=== PATIENT | male | born 1950 | race African-American/Black ===

== ENCOUNTER 2016-07-19 15:47 | Observation (INO) | payer OTHER ==
[~2016-07-19] VITALS: Ht 185.4 cm; Wt 80.0 kg
[~2016-07-19 15:47] MED LIST: AMLO5 PO; ASPI325T PO; CLON.1T TD; CLOP75 PO; HYDRA50 PO; LORTA5 PO; LOSA50 PO; METO25 PO; PHEN100 PO; PRAV40 PO; TRAZ100 PO; WALKER ROLLING
[2016-07-19 15:55] VITALS: TEMP 98.3
[2016-07-19] MEDS ORDERED: SODIUM CHLORIDE 0.9% FLUSH 10 ML FLUSH IVF PRN (16:00)
--- NOTE | 2016-07-19 16:07 | PD ---
HPI Chief Complaint: Syncope/Near-Syncope Time Seen by Provider: 16:04 Travel History International Travel<30 days: No Contact w/Intl Traveler<30days: No Traveled to known affect area: No History of Present Illness HPI Patient comes in by EMS after having a witnessed syncopal episode by family at an [facility] where he is currently residing. Per EMS he was eating when family noticed him having an episode of loss of consciousness in his wheelchair for approximately 2 minutes. Patient denies any pain or medical complaints. Denies any chest pain pre-or post with loss of consciousness. Denies any headache, new numbness or tingling, shortness of breath, chest pain, nausea, vomiting, or fevers. Patient states that he has residual weakness on his left side from a previous stroke 2-3 months ago. Patient is uncertain of his medications or other medical history. PFSH Past Medical History Autoimmune Disease: No Blood Disorders: No Anxiety: Yes Depression: Yes Heart Rhythm Problems: No Cancer: No Cardiovascular Problems: Yes High Cholesterol: Yes Chest Pain: No Congestive Heart Failure: No Cerebrovascular Accident: Yes Diminished Hearing: No Endocrine: No Genitourinary: No Hepatitis: Yes (HEP C) Hypertension: Yes Immune Disorder: No Implanted Vascular Access Dvce: Yes Musculoskeletal: No Neurologic: No Psychiatric: Yes Respiratory: No Myocardial Infarction: No Past Surgical History Body Medical Devices: EAR PEIRCING, IVAD Other Surgery: No Social History Alcohol Use: No (1-2 BEERS/DAY) Tobacco Use: Yes (1 PPD) Substance Use: No (MARIJUANA) Allergies-Medications (Allergen,Severity, Reaction): Coded Allergies: No Known Allergies (Verified , 07/19/16) Reported Meds & Prescriptions Reported Meds & Active Scripts Active Reported Clonidine 168 HR Patch (Clonidine HCl) 0.1 Mg/24 Hr Patch 1 Patch T-DERMAL Q7D Trazodone (Trazodone HCl) 100 Mg Tab 100 Mg PO HS Sertraline (Sertraline HCl) 50 Mg Tab 50 Mg PO DAILY Senokot S (Sennosides-Docusate Sodium) 8.6-50 Mg Tab 2 Tab PO BID Phenytoin (Phenytoin Sodium) 1 Pow Pow 100 Mg PO BID Mirtazapine 15 Mg Tab 15 Mg PO HS Metoprolol Tartrate 50 Mg Tab 50 Mg PO BID Losartan (Losartan Potassium) 50 Mg Tab 50 Mg PO DAILY Levothyroxine (Levothyroxine Sodium) 50 Mcg Tab 50 Mcg PO DAILY Hyoscyamine Sulfate 0.125 Mg Sub 1 Tab PO TID Hydrocodone-Acetaminophen 5-325 mg Tab 1 Tab PO BID Hydralazine (Hydralazine HCl) 50 Mg Tab 50 Mg PO Q6HR Take with a meal Ferrous Sulfate 325 Mg Tab 325 Mg PO DAILY Clopidogrel (Clopidogrel Bisulfate) 75 Mg Tab 75 Mg PO DAILY Atorvastatin (Atorvastatin Calcium) 80 Mg Tab 80 Mg PO HS Aspirin 81 Mg Tabdr 81 Mg PO DAILY Amlodipine (Amlodipine Besylate) 10 Mg Tab 10 Mg PO DAILY Review of Systems Except as stated in HPI: all other systems reviewed are Neg Physical Exam Narrative GENERAL: Well-developed, well nourished, in no acute distress, and non-ill appearing. SKIN: Focused skin assessment warm and dry. HEAD: Atraumatic. Normocephalic. EYES: Pupils equal and round. EOMI. No scleral icterus. No injection or drainage. ENT: No nasal bleeding or discharge. Mucous membranes pink and moist. NECK: Trachea midline. Supple. No nuclear rigidity. CARDIOVASCULAR: Regular rate and rhythm. No murmur appreciated. RESPIRATORY: No accessory muscle use. No respiratory distress. Clear to auscultation. Breath sounds equal bilaterally. GASTROINTESTINAL: Abdomen soft, non-tender, nondistended. Hepatic and splenic margins not palpable. Normal bowel sounds 4. No pulsatile mass. MUSCULOSKELETAL: No obvious deformities. No clubbing. No cyanosis. No edema. Decreased range of motion on the left from previous CVA patient reports is unchanged.. NEUROLOGICAL: Awake and alert. No obvious cranial nerve deficits. Normal speech. PSYCHIATRIC: Appropriate mood and affect; insight and judgment normal. Data Data Last Documented VS Vital Signs Date Time Temp Pulse Resp B/P Pulse Ox O2 Delivery O2 Flow Rate FiO2 07/19/16 18:00 64 16 132/72 95 Room Air 07/19/16 15:55 98.3 Orders Electrocardiogram (07/19/16 15:59) Basic Metabolic Panel (Bmp) (07/19/16 15:59) Complete Blood Count With Diff (07/19/16 15:59) Magnesium (Mg) (07/19/16 15:59) Ckmb (Isoenzyme) Profile (07/19/16 15:59) Troponin I (07/19/16 15:59) Act Partial Throm Time (Ptt) (07/19/16 15:59) Prothrombin Time / Inr (Pt) (07/19/16 15:59) Urinalysis - C+S If Indicated (07/19/16 15:59) Chest, Single Ap (07/19/16 15:59) Ct Brain W/O Iv Contrast(Rout) (07/19/16 15:59) Ecg Monitoring (07/19/16 15:59) Iv Access Insert/Monitor (07/19/16 15:59) Oximetry (07/19/16 15:59) Sodium Chloride 0.9% Flush (Ns Flush) (07/19/16 16:00) CKMB (07/19/16 16:28) CKMB% (07/19/16 16:28) Admit Order (Ed Use Only) (07/19/16 18:07) Place In Observation (07/19/16 ) Vital Signs (Adult) Q4H (07/19/16 18:04) Regulatory Affairs Portfolio Leader / Telemetry .CONTINUOUS (07/19/16 18:04) Intake + Output TIFFANY.QSHIFT (07/19/16 18:04) Diet Heart Healthy (07/19/16 Dinner) Sodium Chloride 0.9% Flush (Ns Flush) (07/19/16 18:15) Sodium Chloride 0.9% Flush (Ns Flush) (07/19/16 21:00) Acetaminophen (Tylenol) (07/19/16 18:15) Ondansetron Inj (Zofran Inj) (07/19/16 18:15) Basic Metabolic Panel (Bmp) (07/20/16 06:00) Complete Blood Count With Diff (07/20/16 06:00) Resp Oxygen Zach C Titrat 1-4 L (07/19/16 ) Pt Request For Service (07/19/16 18:04) Heparin Inj (Heparin Inj) (07/19/16 20:00) Naloxone Inj (Narcan Inj) (07/19/16 18:15) Echo 2d Comp W/Dopp(Routine) (07/19/16 ) Consult Neurology (07/19/16 ) Us Carotid Arteries Comp Bilat (07/19/16 ) Labs Laboratory Tests Test 07/19/16 16:28 White Blood Count 6.0 TH/MM3 Red Blood Count 3.36 MIL/MM3 Hemoglobin 11.2 GM/DL Hematocrit 32.0 % Mean Corpuscular Volume 95.2 FL Mean Corpuscular Hemoglobin 33.2 PG Mean Corpuscular Hemoglobin 34.9 % Concent Red Cell Distribution Width 13.5 % Platelet Count 237 TH/MM3 Mean Platelet Volume 7.6 FL Neutrophils (%) (Auto) 61.9 % Lymphocytes (%) (Auto) 21.3 % Monocytes (%) (Auto) 12.9 % Eosinophils (%) (Auto) 2.9 % Basophils (%) (Auto) 1.0 % Neutrophils # (Auto) 3.7 TH/MM3 Lymphocytes # (Auto) 1.3 TH/MM3 Monocytes # (Auto) 0.8 TH/MM3 Eosinophils # (Auto) 0.2 TH/MM3 Basophils # (Auto) 0.1 TH/MM3 CBC Comment DIFF FINAL Differential Comment Prothrombin Time 11.5 SEC Prothromb Time International 1.0 RATIO Ratio Activated Partial 25.6 SEC Thromboplast Time Sodium Level 139 MEQ/L Potassium Level 4.3 MEQ/L Chloride Level 102 MEQ/L Carbon Dioxide Level 31.6 MEQ/L Anion Gap 5 MEQ/L Blood Urea Nitrogen 14 MG/DL Creatinine 0.91 MG/DL Estimat Glomerular Filtration 101 ML/MIN Rate Random Glucose 101 MG/DL Calcium Level 8.7 MG/DL Magnesium Level 1.7 MG/DL Total Creatine Kinase 107 U/L Creatine Kinase MB 0.9 NG/ML Troponin I LESS THAN 0.02 NG/ML MDM Medical Decision Making Medical Screen Exam Complete: Yes Emergency Medical Condition: Yes Interpretation(s) EK reviewed by Dr. Alves, shows sinus rhythm with a ventricular rate of 65. No STEMI. Differential Diagnosis Syncope, acute coronary syndrome, electrolyte abnormality, dehydration, polypharmacy, other Narrative Course Patient was seen and exam. Laboratory and radiological studies were obtained and reviewed. Discussed patient with Dr. Alves, who recommends having the patient placed in observation for further evaluation of witnessed syncope. Discussed all findings and plan of care with patient, who is agreeable for admission. All questions were answered. Physician Communication Physician Communication [address] Borja, who is agreeable to admit the patient. Diagnosis Primary Impression: Syncope Qualified Code: R55 - Syncope, unspecified syncope type Admitting Information Admitting Physician Requests: Observation Condition: Stable Antione Velarde PA Jul 19, 2016 16:07
[2016-07-19 16:30] VITALS: RESP 16; O2SAT 98
[2016-07-19 16:49] LABS: AUTOMATED NEUTROPHIL # 3.7 TH/MM3 (1.8-7.7); BASOPHIL # 0.1 TH/MM3 (0-0.2); EOSINOPHIL # 0.2 TH/MM3 (0-0.4); EOSINOPHIL % 2.9 % (0.0-4.0); HEMO FLAGS DIFF FINAL; LYMPH % 21.3 % (9.0-44.0); LYMPHOCYTE # 1.3 TH/MM3 (1.0-4.8); MEAN CELL VOLUME 95.2 FL (80.0-100.0); MEAN CORPUSCULAR HEMOGLOBIN 33.2 PG (27.0-34.0); MEAN CORPUSCULAR HGB CONC 34.9 % (32.0-36.0); MONO % 12.9 % (0.0-8.0); NEUT % 61.9 % (16.0-70.0); PLATELET COUNT 237 TH/MM3 (150-450); RED BLOOD COUNT 3.36 MIL/MM3 (4.50-5.90); RED CELL DISTRIBUTION WIDTH 13.5 % (11.6-17.2)
[2016-07-19 16:59] LABS: PROTHROMBIN TIME - PATIENT 11.5 SEC (9.8-11.6)
[2016-07-19 17:01] LABS: APTT (PATIENT) 25.6 SEC (24.3-30.1)
[2016-07-19] MEDS ORDERED: CLOP75TA PO (17:12)
[2016-07-19] MEDS ORDERED: HYDR-3516 PO (17:12)
[2016-07-19] MEDS ORDERED: LOSA50TA PO (17:12)
[2016-07-19] MEDS ORDERED: ATOR1TAB18 PO (17:12)
[2016-07-19] MEDS ORDERED: LEVO50TA4 PO (17:12)
[2016-07-19] MEDS ORDERED: AMLO10TA2 PO (17:12)
[2016-07-19] MEDS ORDERED: TRAZ100T4 PO (17:12)
[2016-07-19] MEDS ORDERED: ASPI1TAB69 PO (17:12)
[2016-07-19] MEDS ORDERED: HYDR50TA15 PO (17:12)
[2016-07-19] MEDS ORDERED: PHEN1POW PO (17:12)
[2016-07-19] MEDS ORDERED: HYOS0.127 PO (17:12)
[2016-07-19] MEDS ORDERED: MIRTA15 PO (17:12)
[2016-07-19] MEDS ORDERED: SENN1TAB17 PO (17:12)
[2016-07-19] MEDS ORDERED: CLON0.1D T-DERMAL (17:12)
[2016-07-19] MEDS ORDERED: FERR325T PO (17:12)
[2016-07-19] MEDS ORDERED: METO50TA PO (17:12)
[2016-07-19] MEDS ORDERED: SERT-132 PO (17:12)
--- NOTE | 2016-07-19 17:12 | RADRPT ---
EXAM DATE/TIME: 07/19/2016 16:07 [facility] COMPARISON: CHEST SINGLE AP, October 14, 2015, 15:04. INDICATIONS : Syncope. Short of breath. Smoker. MEDICAL HISTORY : Hypertension. Hepatitis C. Hypercholesterolemia. SURGICAL HISTORY : None. ENCOUNTER: Initial ACUITY: 1 day PAIN SCORE: 0/10 LOCATION: Bilateral chest FINDINGS: A single view of the chest demonstrates the lungs to be symmetrically aerated without evidence of mas s, infiltrate or effusion. The cardiomediastinal contours are unremarkable. Osseous structures are intact. CONCLUSION: No acute disease. No significant change has occurred. Mark Sampson MD on July 19, 2016 at 17:10 Board Certified Radiologist. This report was verified electronically.
--- NOTE | 2016-07-19 17:24 | RADRPT ---
EXAM DATE/TIME: 07/19/2016 16:39 [facility] COMPARISON: MRI BRAIN W/O CONTRAST, October 17, 2015, 10:19. CT BRAIN W/O CONTRAST, October 14, 2015, 14:30. INDICATIONS : Syncopal episode today. RADIATION DOSE: 42.50 CTDIvol (mGy) MEDICAL HISTORY : Stroke. Hepatitis C. Hypertension. SURGICAL HISTORY : None. ENCOUNTER: Initial ACUITY: 1 day PAIN SCALE: 0/10 LOCATION: Bilateral head TECHNIQUE: Multiple contiguous axial images were obtained of the head. Using automated exposure control and adj ustment of the mA and/or kV according to patient size, radiation dose was kept as low as reasonably a chievable to obtain optimal diagnostic quality images. FINDINGS: CEREBRUM: The ventricles are normal for age. There is bilateral cortical atrophy. There is evidence of an old i nfarct involving the right frontal lobe and right mid parietal area which was noted on patient's prio r studies. There is an old infarct involving the right thalamus. No evidence of midline shift, mass l esion, hemorrhage or acute infarction. No extra-axial fluid collections are seen. Bilateral chronic white matter changes are demonstrated. POSTERIOR FOSSA: The cerebellum and brainstem are intact. The 4th ventricle is midline. The cerebellopontine angle i s unremarkable. EXTRACRANIAL: The visualized portion of the orbits is intact. SKULL: The calvaria is intact. No evidence of skull fracture. CONCLUSION: 1. No acute intracranial hemorrhage. 2. Evidence of old infarction involving the right frontal lobe, right mid parietal area and right krystal lamus. 3. Bilateral cortical atrophy and chronic white matter changes bilaterally. Mark Sampson MD on July 19, 2016 at 17:21 Board Certified Radiologist. This report was verified electronically.
[2016-07-19 17:29] LABS: ANION GAP 5 MEQ/L (5-15); BICARBONATE 31.6 MEQ/L (21.0-32.0); BLOOD UREA NITROGEN 14 MG/DL (7-18); CHLORIDE 102 MEQ/L (98-107); CREATINE KINASE 107 U/L (39-308); GLOMERULAR FILTRATION RATE 101 ML/MIN (>89); MAGNESIUM 1.7 MG/DL (1.5-2.5); SODIUM (NA) 139 MEQ/L (136-145)
[2016-07-19 17:30] LABS: POTASSIUM 4.3 MEQ/L (3.5-5.1)
[2016-07-19 17:42] LABS: CKMB 0.9 NG/ML (0.5-3.6)
[2016-07-19 18:00] VITALS: BP 132/72; PULSE 64; RESP 16; O2SAT 95
[2016-07-19] MEDS ORDERED: ACETAMINOPHEN 325 MG TAB PO PRN (18:15)
[2016-07-19] MEDS ORDERED: ONDANSETRON HCL 4 MG/2 ML VIAL IVP PRN (18:15)
[2016-07-19] MEDS ORDERED: NALOXONE HCL 0.4 MG/ML AMP IV PRN (18:15)
[2016-07-19] MEDS: SODIUM CHLORIDE 0.9% FLUSH 10 ML FLUSH IV FLUSH SCH (19:38)
[2016-07-19] MEDS: HEPARIN SODIUM - SQ 10,000 UNITS/ML VIAL SQ SCH (19:38)
[2016-07-19 20:23] VITALS: BP 128/68; PULSE 63; RESP 16; TEMP 98.7; O2SAT 98
[2016-07-19 20:39] VITALS: PULSE 57
--- NOTE | 2016-07-19 23:39 | RADRPT ---
EXAM DATE/TIME: 07/19/2016 22:13 [facility] COMPARISON: US CAROTID ARTERIES, October 09, 2015, 13:36. INDICATIONS : Syncope. MEDICAL HISTORY : Hypercholesterolemia. Hypertension. Hepatitis C. Cerebrovascular accident. Depression. Anxiety. SURGICAL HISTORY : None. ENCOUNTER: Subsequent ACUITY: 1 day PAIN SCORE: 0/10 LOCATION: Bilateral neck PEAK SYSTOLIC VELOCITIES (cm/sec): ICA/CCA RATIO: N.A. Left: 1.3 ICA: Right:Occluded Left: 100 CCA: Right: 50 Left: 79 ECA: Right: 81 Left: 71 VERTEBRAL: Right: 48 antegrade Left: 32 antegrade Elevated flow velocities and ICA/CCA ratios have been found to correlate with increased degrees of vessel stenosis, calculated as percentage of diameter relative to a normal segment of distal ICA/CCA FINDINGS: RIGHT CAROTID: There is plaque right carotid bulb with occlusion of the right internal carotid artery. LEFT CAROTID: There is moderate plaque at the left carotid bulb region. This appears potentially significant on the grayscale images but the velocities are within normal limits. VERTEBRAL ARTERIES: Antegrade flow is seen in both vertebral arteries. MISCELLANEOUS: None. CONCLUSION: 1. Occlusion of the right internal carotid artery. 2. Prominent at least moderate plaque at the left carotid bulb region. A significant stenosis is not confirmed. This area could be further evaluated with a CTA of the neck. Low Barnett MD on July 19, 2016 at 23:33 Board Certified Radiologist. This report was verified electronically.
[2016-07-19 23:56] VITALS: BP 130/66; PULSE 71; RESP 18; TEMP 98.7; O2SAT 97
[2016-07-20] VITALS (9 sets, daily range): BP systolic 99–143; BP diastolic 63–77; PULSE 59–87; RESP 16–20; TEMP 97.8–98.9; O2SAT 95–97
[2016-07-20 07:14] LABS: POTASSIUM 3.5 MEQ/L (3.5-5.1)
[2016-07-20 07:22] LABS: AUTOMATED NEUTROPHIL # 2.3 TH/MM3 (1.8-7.7); BASOPHIL # 0.1 TH/MM3 (0-0.2); BASOPHIL % 1.3 % (0.0-2.0); EOSINOPHIL # 0.2 TH/MM3 (0-0.4); EOSINOPHIL % 3.9 % (0.0-4.0); HEMATOCRIT 30.3 % (39.0-51.0); HEMO FLAGS DIFF FINAL; LYMPH % 35.3 % (9.0-44.0); LYMPHOCYTE # 1.7 TH/MM3 (1.0-4.8); MEAN CELL VOLUME 95.4 FL (80.0-100.0); MEAN CORPUSCULAR HEMOGLOBIN 31.8 PG (27.0-34.0); MEAN CORPUSCULAR HGB CONC 33.3 % (32.0-36.0); MONO % 12.6 % (0.0-8.0); NEUT % 46.9 % (16.0-70.0); PLATELET COUNT 213 TH/MM3 (150-450); RED BLOOD COUNT 3.18 MIL/MM3 (4.50-5.90); RED CELL DISTRIBUTION WIDTH 13.3 % (11.6-17.2); WHITE BLOOD COUNT 4.9 TH/MM3 (4.0-11.0)
[2016-07-20] MEDS: HEPARIN SODIUM - SQ 10,000 UNITS/ML VIAL SQ SCH ×2 (08:21→19:31)
[2016-07-20] MEDS ORDERED: IOHEXOL 350 MG/ML 10 ML VIAL (for RAD DIAG) IV ONE (08:37)
[2016-07-20] MEDS: SODIUM CHLORIDE 0.9% FLUSH 10 ML FLUSH IV FLUSH SCH ×2 (08:46→19:32)
--- NOTE | 2016-07-20 08:52 | RADRPT ---
EXAM DATE/TIME: 07/20/2016 07:53 [facility] COMPARISON: CTA CAROTID ARTERIES W 3D RECON, October 09, 2015, 17:47. INDICATIONS : Abnormal ultrasound, evaluate for right carotid occlusion. IV CONTRAST: 85 cc Omnipaque 350 (iohexol) IV RADIATION DOSE: 16.57 CTDIvol (mGy) MEDICAL HISTORY : Stroke. Hypertension. Hepatitis C. SURGICAL HISTORY : None. ENCOUNTER: Subsequent ACUITY: 1 day PAIN SCALE: 0/10 LOCATION: Bilateral head Elevated flow velocities and ICA/CCA ratios have been found to correlate with increased degrees of vessel stenosis, calculated as percentage of diameter relative to a normal segment of distal ICA/CCA. TECHNIQUE: Volumetric scanning was performed using a multirow detector CT scanner. The data was post processed with a variety of visualization algorithms including full-volume maximum intensity projection, multip lanar sliding thin-slab reformation, curved-planar reformation, and surface-rendering techniques. Us ing automated exposure control and adjustment of the mA and/or kV according to patient size, radiatio n dose was kept as low as reasonably achievable to obtain optimal diagnostic quality images. FINDINGS: AORTIC ARCH: There is a three-vessel origin of the great vessels from the aorta. No evidence of ostial narrowing. RIGHT CAROTID: The common carotid artery is intact. The right internal carotid artery remains occluded beginning jus t distal to its origin. The external carotid artery is intact. LEFT CAROTID: The common carotid artery is intact. The carotid bulb has a normal configuration without ulceration or narrowing. The internal carotid artery lumen is smooth without stenosis. The external carotid ar ashely is intact. VERTEBRALS: The vertebral arteries have a symmetric diameter. No stenotic lesions are seen. CONCLUSION: Persistent occlusion of the right internal carotid artery. No significant stenosis seen with regards to the left internal carotid artery.. Ofelia Downs MD on July 20, 2016 at 8:43 Board Certified Radiologist. This report was verified electronically.
--- NOTE | 2016-07-20 10:43 | HHI.HP ---
[facility] Admission Diagnosis syncope Diagnoses: Travel History International Travel<30 Days: No Contact w/Intl Traveler <30 Da: No Traveled to Known Affected Are: No Past Family Social History Allergies: Coded Allergies: No Known Allergies (Verified , 07/19/16) Physical Exam Vital Signs Vital Signs Date Time Temp Pulse Resp B/P Pulse Ox O2 Delivery O2 Flow Rate FiO2 07/20/16 08:50 71 07/20/16 07:31 98.0 79 20 143/77 96 07/20/16 03:37 98.8 65 18 116/69 97 07/20/16 02:00 95 21 07/19/16 23:56 98.7 71 18 130/66 97 07/19/16 20:39 57 07/19/16 20:23 98.7 63 16 128/68 98 07/19/16 18:00 64 16 132/72 95 Room Air 07/19/16 16:30 16 98 Room Air 07/19/16 15:55 98.3 Laboratory Laboratory Tests Test 07/19/16 07/20/16 16:28 06:07 White Blood Count 6.0 4.9 Red Blood Count 3.36 3.18 Hemoglobin 11.2 10.1 Hematocrit 32.0 30.3 Mean Corpuscular Volume 95.2 95.4 Mean Corpuscular Hemoglobin 33.2 31.8 Mean Corpuscular Hemoglobin 34.9 33.3 Concent Red Cell Distribution Width 13.5 13.3 Platelet Count 237 213 Mean Platelet Volume 7.6 7.7 Neutrophils (%) (Auto) 61.9 46.9 Lymphocytes (%) (Auto) 21.3 35.3 Monocytes (%) (Auto) 12.9 12.6 Eosinophils (%) (Auto) 2.9 3.9 Basophils (%) (Auto) 1.0 1.3 Neutrophils # (Auto) 3.7 2.3 Lymphocytes # (Auto) 1.3 1.7 Monocytes # (Auto) 0.8 0.6 Eosinophils # (Auto) 0.2 0.2 Basophils # (Auto) 0.1 0.1 CBC Comment DIFF FINAL DIFF FINAL Differential Comment Prothrombin Time 11.5 Prothromb Time International 1.0 Ratio Activated Partial 25.6 Thromboplast Time Sodium Level 139 142 Potassium Level 4.3 3.5 Chloride Level 102 104 Carbon Dioxide Level 31.6 29.0 Anion Gap 5 9 Blood Urea Nitrogen 14 11 Creatinine 0.91 0.74 Estimat Glomerular Filtration 101 129 Rate Random Glucose 101 84 Calcium Level 8.7 9.0 Magnesium Level 1.7 Total Creatine Kinase 107 Creatine Kinase MB 0.9 Troponin I LESS THAN 0.02 Result Diagram: 07/20/16 0607 07/20/16 0607 Assessment and Plan Assessment and Plan dictated.[id number] Note : patient refused ECHO. Luba Negron Jul 20, 2016 10:43
[2016-07-20] MEDS: DOCUSATE SODIUM 50 MG/SENNA 8.6 MG TAB PO SCH ×3 (11:00→19:32)
[2016-07-20] MEDS ORDERED: cloNIDine HCL 0.1 MG/24 HR PATCH T-DERMAL SCH (12:00)
[2016-07-20] MEDS: PHENYTOIN SODIUM 100 MG CAP PO SCH ×2 (12:18→19:32)
[2016-07-20] MEDS: CLOPIDOGREL 75 MG TAB PO SCH (12:18)
[2016-07-20] MEDS: LOSARTAN 50 MG TAB PO SCH (12:19)
[2016-07-20] MEDS: LEVOTHYROXINE SODIUM 50 MCG TAB PO SCH (12:19)
[2016-07-20] MEDS: FERROUS SULFATE 325 MG (65 MG ELEMENTAL IRON) TAB PO SCH (12:19)
[2016-07-20] MEDS: METOPROLOL TARTRATE 50 MG TAB PO SCH ×2 (12:19→19:32)
[2016-07-20] MEDS: SERTRALINE HCL 50 MG TAB PO SCH (12:19)
[2016-07-20] MEDS: hydrALAZINE HCL 50 MG TAB PO SCH ×3 (12:19→23:52)
[2016-07-20] MEDS: ASPIRIN EC 81 MG TABEC PO SCH (12:19)
--- NOTE | 2016-07-20 13:18 | HHI.HP ---
[facility] Service [place] Primary Care Physician [facility] Admission Diagnosis syncope Diagnoses: Travel History International Travel<30 Days: No Contact w/Intl Traveler <30 Da: No Traveled to Known Affected Are: No Past Family Social History Allergies: Coded Allergies: No Known Allergies (Verified , 07/19/16) Physical Exam Vital Signs Vital Signs Date Time Temp Pulse Resp B/P Pulse Ox O2 Delivery O2 Flow Rate FiO2 07/20/16 11:29 98.9 87 20 120/65 96 07/20/16 08:50 71 07/20/16 07:31 98.0 79 20 143/77 96 07/20/16 03:37 98.8 65 18 116/69 97 07/20/16 02:00 95 21 07/19/16 23:56 98.7 71 18 130/66 97 07/19/16 20:39 57 07/19/16 20:23 98.7 63 16 128/68 98 07/19/16 18:00 64 16 132/72 95 Room Air 07/19/16 16:30 16 98 Room Air 07/19/16 15:55 98.3 Physical Exam GENERAL: This is a well-nourished, well-developed patient, in no apparent distress. SKIN: No rashes, ecchymoses or lesions. Cool and dry. HEAD: Atraumatic. Normocephalic. No temporal or scalp tenderness. EYES: Pupils equal round and reactive. Extraocular motions intact. No scleral icterus. No injection or drainage. ENT: Nose without bleeding, purulent drainage or septal hematoma. Throat without erythema, tonsillar hypertrophy or exudate. Uvula midline. Airway patent. NECK: Trachea midline. No JVD or lymphadenopathy. Supple, nontender, no meningeal signs. CARDIOVASCULAR: Regular rate and rhythm without murmurs, gallops, or rubs. RESPIRATORY: Clear to auscultation. Breath sounds equal bilaterally. No wheezes , rales, or rhonchi. GASTROINTESTINAL: Abdomen soft, non-tender, nondistended. No hepato-splenomegaly , or palpable masses. No guarding. MUSCULOSKELETAL: Extremities without clubbing, cyanosis, or edema. No joint tenderness, effusion, or edema noted. No calf tenderness. Negative Homans sign bilaterally. NEUROLOGICAL: Awake and alert. Cranial nerves II through XII intact. Motor and sensory grossly within normal limits. Five out of 5 muscle strength in all muscle groups. Normal speech. Laboratory Laboratory Tests Test 07/19/16 07/20/16 16:28 06:07 White Blood Count 6.0 4.9 Red Blood Count 3.36 3.18 Hemoglobin 11.2 10.1 Hematocrit 32.0 30.3 Mean Corpuscular Volume 95.2 95.4 Mean Corpuscular Hemoglobin 33.2 31.8 Mean Corpuscular Hemoglobin 34.9 33.3 Concent Red Cell Distribution Width 13.5 13.3 Platelet Count 237 213 Mean Platelet Volume 7.6 7.7 Neutrophils (%) (Auto) 61.9 46.9 Lymphocytes (%) (Auto) 21.3 35.3 Monocytes (%) (Auto) 12.9 12.6 Eosinophils (%) (Auto) 2.9 3.9 Basophils (%) (Auto) 1.0 1.3 Neutrophils # (Auto) 3.7 2.3 Lymphocytes # (Auto) 1.3 1.7 Monocytes # (Auto) 0.8 0.6 Eosinophils # (Auto) 0.2 0.2 Basophils # (Auto) 0.1 0.1 CBC Comment DIFF FINAL DIFF FINAL Differential Comment Prothrombin Time 11.5 Prothromb Time International 1.0 Ratio Activated Partial 25.6 Thromboplast Time Sodium Level 139 142 Potassium Level 4.3 3.5 Chloride Level 102 104 Carbon Dioxide Level 31.6 29.0 Anion Gap 5 9 Blood Urea Nitrogen 14 11 Creatinine 0.91 0.74 Estimat Glomerular Filtration 101 129 Rate Random Glucose 101 84 Calcium Level 8.7 9.0 Magnesium Level 1.7 Total Creatine Kinase 107 Creatine Kinase MB 0.9 Troponin I LESS THAN 0.02 Result Diagram: 07/20/16 0607 07/20/16 0607 Assessment and Plan Assessment and Plan patient seen and examined Please refer to admission [facility] & P for details syncope no episodes since admission awake alert asymptomatic right now Carotid ultrasound and CTA with right ICA stenosis consult vascular surgery Neurology input awaited EEG pending discussed with patient no family at bed side discussed with Adelaida Burris MD Jul 20, 2016 13:18
--- NOTE | 2016-07-20 14:17 | MB ---
cc: AUTUMN YOUNG M.D. DATE OF CONSULTATION 07/20/16 DATE OF 1950 REASON FOR CONSULTATION Syncope. HISTORY OF PRESENT ILLNESS This is a 65-year-old man with a history of right MCA infarct with right ICA occlusion from 2016. He lives in an [facility] where they claim there was a syncope witnessed by family. The patient cannot give me any history, currently sleeping, arousable, follows commands. PAST MEDICAL HISTORY He has a past medical history of stroke with right MCA with a right carotid occlusion. He has a history of depression, hyperlipidemia, hepatitis C, hypertension, some type of implantable vascular access device. ALLERGIES None reported. MEDICATIONS 1. Clonidine. 2. Trazodone. 3. Sertraline. 4. Senokot. 5. Dilantin 100 milligrams twice a day. 6. Mirtazapine. 7. Metoprolol. 8. Losartan. Synthroid. 9. Glucosamine. 10. Lortab. 11. Hydralazine. 12. Iron. 13. Plavix. 14. Atorvastatin. 15. Baby aspirin. 16. Amlodipine. PHYSICAL EXAMINATION VITAL SIGNS: On exam his vitals his temperature 98.9, pulse 87, respiratory rate 20, blood pressure 120/65. NEURO: He is awake and alert and verbal, yes or no. Follows commands. Pupils are reactive. Face looks symmetrical. He has a left hemiplegia with increased tone, right side is intact. Gait cannot be assessed. His labs are reviewed. He has not had a Dilantin level, however. IMAGING STUDIES Imaging shows an old right frontal parietal thalamic stroke, carotid CTA right ICA occlusion. IMPRESSION Syncope versus seizure. The patient with a prior right MCA stroke. Will ahead and get the echo as ordered. Get an EEG and Dilantin level. Watch him for any seizures. Physical therapy evaluation and further recommendations as needed. MD THONY Bernal/TAINA /12:03 PM /2:07 PM
[2016-07-20] MEDS: HYOSCYAMINE 0.125 MG TAB PO SCH ×2 (14:45→17:14)
--- NOTE | 2016-07-20 15:09 | MB ---
cc: REINALDO RAMIREZ MD DATE OF CONSULTATION 07/19/2016 HISTORY OF PRESENT ILLNESS This is a gentleman who is [id number] who was witnessed to have a syncopal episode while at an assisted living facility. He was brought in the emergency room to be evaluated. PAST MEDICAL HISTORY His past medical history is well documented in his chart. A major significance is that he has had a right hemispheric CVA in the past. He is positive for hepatitis C. SOCIAL HISTORY He denies any significant social history. He does smoke one pack per day and drinks approximately one to two beers per day. ALLERGIES He is allergic to no known medications. REVIEW OF SYSTEMS His review of systems as I said is documented well in his emergency room visit and as well as his history and physical. PHYSICAL EXAMINATION GENERAL: Evaluation today reveals an alert white black male who has had difficulty feeding himself and has food over his mouth and chin. VITAL SIGNS: His blood pressure is 132/72, pulse is 64, respirations are 12. SKIN, HEAD, EYES, EARS, NOSE, AND THROAT: Negative. NECK: Neck is supple. He does not have any carotid bruits. HEART: Heart has a normal sinus rhythm. ABDOMEN: Abdomen is soft and nontender. EXTREMITIES: Groin pulses are 2+ bilaterally. No palpable pulses below the groin in either lower extremity. He has a dense right hemispheric stroke, in evaluating his left upper extremity and left lower extremity with contracture of his left knee and no evidence of any movement in his left upper extremity. NEUROLOGICAL: Otherwise unremarkable with the exception of the above. IMPRESSION This patient has had a previous right hemispheric stroke which is dense and he has not recovered from. Evaluation of his CTA shows an occluded right carotid artery and evaluation of his ultrasound shows an occluded right internal carotid artery. There is basically nothing that vascular surgery has to offer this gentleman. Thank you very much for consultation. Reinaldo Ramirez MD MPH/EO /2:03 PM /2:52 PM
[2016-07-20] MEDS: SODIUM CHLORIDE 0.9% FLUSH 10 ML FLUSH IV FLUSH PRN (19:32)
[2016-07-20] MEDS ORDERED: ATORVASTATIN 80 MG TAB PO SCH (21:00)
[2016-07-20] MEDS ORDERED: traZODone HCL 100 MG TAB PO SCH (21:00)
[2016-07-20] MEDS ORDERED: MIRTAZAPINE 15 MG TAB PO SCH (21:00)
[2016-07-21 04:15] VITALS: BP 128/72; PULSE 59; RESP 16; TEMP 97.9; O2SAT 96
[2016-07-21] MEDS: LEVOTHYROXINE SODIUM 50 MCG TAB PO SCH (04:20)
[2016-07-21] MEDS: SODIUM CHLORIDE 0.9% FLUSH 10 ML FLUSH IV FLUSH PRN (04:20)
[2016-07-21 05:17] LABS: BICARBONATE 30.4 MEQ/L (21.0-32.0); POTASSIUM 3.5 MEQ/L (3.5-5.1)
[2016-07-21] MEDS: hydrALAZINE HCL 50 MG TAB PO SCH ×3 (05:29→18:00)
--- NOTE | 2016-07-21 07:45 | MG ---
cc: AUTUMN YOUNG M.D. Lab No: [id number] Date: 07/21/2016 Age: 65 Sex: M Photic stimulation. Awake and drowsy EEG study on 10/15/[address] shows an old infarct in the right hemisphere with left hemiplegia. History of syncope while eating, loss of consciousness for two minutes. History of stroke with residual left-sided weakness. Alcohol and tobacco use in the past. Hepatitis C. Medicines are clonidine, Apresoline, Zoloft, Norvasc, aspirin, Plavix, iron, Synthroid, Cozaar, Lopressor, Dilantin, heparin. DESCRIPTION OF RECORD A lot of muscle artifact but overall he does have a background alpha of 8 Hz. EKG has some artifact, difficult to tell a true sinus rhythm by this one lead. There looks like some possible PVCs. Photic stimulation elicits a mild driving response. No epileptiform features. IMPRESSION Overall normal-appearing EEG. No epileptiform features. Clinical correlation. MD THONY Bernal/GRISELDA /7:32 AM /7:39 AM
--- NOTE | 2016-07-21 08:29 | HHI.PR ---
Subjective Remarks resting in bed,moves around alot. awake responds to verbal stimuli No further syncopal episodes No shortness of breath Left-sided paralysis Afebrile (Luba Negron) Objective Objective Results - Vital Signs Date Time Temp Pulse Resp B/P Pulse Ox O2 Delivery O2 Flow Rate FiO2 07/21/16 04:15 97.9 59 16 128/72 96 07/20/16 22:36 98.0 59 16 99/63 96 07/20/16 19:04 82 07/20/16 19:00 97.8 78 18 103/65 96 07/20/16 15:44 98.6 72 20 108/63 97 07/20/16 11:29 98.9 87 20 120/65 96 07/20/16 08:50 71 I/O 07/20/16 07/20/16 07/20/16 07/21/16 07/21/16 07/21/16 07:00 15:00 23:00 07:00 15:00 23:00 Intake Total 400 ml Balance 400 ml Intake Oral 400 ml # Voids 1 1 (Luba Negron) Result Diagram: 07/20/16 0607 07/21/16 0450 ROS General: Fatigue, Weakness (left-sided), Other (10 point ROS done. Positives noted in ROS review other systems negative) Pulmonary: Cough (none) Neuro/MS: Lightheaded (syncope on admission, none since) (Luba Negron ) Physical Exam Physical Exam PHYSICAL EXAMINATION GENERAL: This is a well-developed, well-nourished male who appears to be in no acute distress. He is alert and awake, CVA in 2016 HEAD: Normocephalic Facial features appear symmetric. OROPHARYNGEAL: Oropharynx without erythema or edema. NECK: Supple. No nuchal rigidity or lymphadenopathy. Trachea midline without deviation. CARDIAC: Regular rhythm, regular rate, S1 and S2 are heard. Murmur grade 3/6 left sternal border; no gallops or rubs. LUNGS: Clear to auscultation bilaterally. ABDOMEN: Soft, nontender, no organomegaly or masses. Bowel sounds are heard in all four quadrants. No rebound. No guarding. EXTREMITIES: no edema. Pulses equal bilateral. Left sided weakness/paralysis NEUROLOGICAL: Patient responds to verbal stimuli and communicates with short brief sentences SKIN:Warm and moist Objective Remarks No more dizzy spells (Luba Negron) A/P Assessment and Plan Syncopal episode, witnessed CTA carotids show right occlusion, left side open, stroke 2016 with total left-sided paralysis. Neuro consult done Appreciate input. Patient is still positive from residual effects of previous CVA. EEG pending, patient refused echocardiogram yesterday. We'll attempt to redo today Appreciate vascular surgery consult, no surgical intervention to offer for now. We'll monitor for any seizures versus syncopal episodes Hypertension Normal trends with medication management, Lowest BP noted 99/63 while sleeping, this a.m. 128/72. Will monitor symptoms Hyperlipidemia Medical management Chronic kidney disease, medical management, monitor labs Agitation, refused echocardiogram yesterday, was not feeling as well. We will attempt to redo today Bradycardia Low 59 when sleeping, otherwise in the 60s and 70s. Medical management. Patient is asymptomatic Anemia Lab results currently show hemoglobin at 10.1. This is probably due to chronic disease. We'll monitor his labs Vital signs reviewed, afebrile, BP notes above, heart rate stable, notes above Labs reviewed, stable chemistries, no leukocytosis or infectious event seen. We 'll monitor Discussed With: Nurse, Family (patient), Other (Dr. Borja) (Luba Negron) Assessment and Plan Patient seen and examined work up neg, no syncope inpatient awaiting ECHo PT eval: needs SNF if Echoneg, can d/c to SNF discussed with patient and family at bed side discussed with case management discussed with Luba HOWARD (Adelaida Borja MD) Luba Negron Jul 21, 2016 08:29 Adelaida Borja MD Jul 21, 2016 09:41
[2016-07-21 08:30] VITALS: BP 143/73; PULSE 55; RESP 20; TEMP 98; O2SAT 94
--- NOTE | 2016-07-21 08:33 | MH ---
cc: LEIGH ANN OSUNA DATE OF ADMISSION: 07/19/2016 REASON FOR ADMISSION: Syncopal episode No travel in the last 30 days. HISTORY OF PRESENT ILLNESS: This is a pleasant 65-year-old black male who was in his usual state of health up until 24 hours ago. The patient is currently and [facility], an [facility] where he was sitting down eating with some of his family. The patient was sitting in a wheelchair and had an acute episode of syncope with loss of consciousness for approximately two minutes according to the record. The patient does not remember anything about the event. He had no signs or symptoms of chest pain, nausea, vomiting, fever, headache, numbness or tingling in his extremities before the incident occurred. The patient denies any previous syncopal episodes. According to the history and patient, he had a stroke approximately two to three months ago and he has been receiving rehabilitation. He is flaccid on his left side but does move his right arm and right leg with purpose. The patient is a fairly good historian, can give most of his previous medical information and current symptoms. PAST MEDICAL HISTORY: Includes: 1. Anxiety, depression. 2. Tobacco use. 3. Alcohol use. 4. Marijuana use. 5. Hyperlipidemia. 6. Cardiovascular disease. 7. Recent CVA. 8. Hepatitis C. 9. Hypertension. PAST SURGICAL HISTORY: According to the records, ear piercing and IV AD. ALLERGIES: NONE KNOWN. REPORTED MEDICATIONS: 1. Clonidine. 2. Trazodone 3. Sertraline 4. Senokot 5. Dilantin. 6. Metoprolol 7. Mirtazapine 8. Losartan. 9. Levothyroxine 10. Hyoscyamine. 11. Hydrocodone. 12. Hydralazine 13. Ferrous sulfate 14. Plavix 15. Atorvastatin 16. Aspirin 17. Amlodipine SOCIAL HISTORY: The patient currently is but lives in the [facility], for rehabilitation. History notes one to two beers a day for alcohol, a pack a day long-term tobacco use, marijuana substance abuse. These were all active approximately three months ago but not now. REVIEW OF SYSTEMS: A 12 point review of systems was done, positives noted in the HPI, which predominantly included a syncopal episode, old left-sided weakness, right CVA. Other systems negative or unremarkable. PHYSICAL EXAMINATION: Vital signs: Temperature is 98, pulse 79, respirations 20, blood pressure 143/77, O2 sat 96, currently on room air. Please note patient's heart rate has been as low as 57, noted on the record, while sleeping in the 60s. General: He is a well-developed, well-nourished black male, looks to be his stated age, resting in the bed. He is alert, awake, awakens easily, a fairly good historian. Skin: [place] mucous membranes, warm and dry. HEENT: Atraumatic, normocephalic. PERRLA. Mucous membranes are pink and moist, no scleral icterus. Neck: Supple. Cardiovascular: S1-S2. Regular rate and rhythm. No murmurs, rubs, or gallops. Respiratory: Essentially clear anteriorly and posteriorly with no wheezes, rales or rhonchi. GI: Abdomen is soft, nontender, nondistended. Active bowel sounds in all four quads. Musculoskeletal: No edema and no obvious deformities, left upper and lower extremity paralysis cannot move on command. Right side normal. Neurologic: Alert, awake, speech is clear. Psychiatric: appropriate mood, judgment appears normal. DIAGNOSTIC DATA White count 4.9. RBC 3.18, hemoglobin 10.1, hematocrit 30.3. Platelet count 213, monocyte percentage 12.6, PT/INR 1. Chemistry: sodium 142, potassium 3.5, chloride 104, carbon dioxide 29, anion gap 9, BUN 11, creatinine 0.74. GFR is 129, glucose 84, calcium is 9. IMAGING STUDIES: Chest x-ray, no acute disease. Head CT: Shows no acute hemorrhage, evidence of old infarct, on the right front lobe, right mid parietal lobe, right thalamus, bilateral cortical atrophy and chronic white matter changes bilaterally. Carotid ultrasound shows occlusion of the right internal carotid artery, prominent, at least moderate plaque on the left carotid bulb region. Significant stenosis is not confirmed but this area could be evaluated further with a CTA of the neck. ASSESSMENT/PLAN 1. Syncope. 2. Hypertension. 3. History of chronic kidney disease, stage III. 4. History of CVA. 5. Ischemic stroke. 6. History of tobacco use. 7. History of alcohol use. 8. Anemia. The plan is to admit, initially for observation. Patient's vital signs will be monitored q4 and more often as warranted. Heart healthy diet. Reconcile medications. Oxygen p.r.n. DVT prophylaxis with heparin and 2-D echocardiogram. Will consult neurology for their expert opinion. Will go ahead and get CTA of the neck for further evaluation, ECG monitoring, IV access, labs as warranted. I suspect his anemia is related to chronic disease. We will continue to monitor for any dysrhythmias and any signs and symptoms related to TIA or CVA. The patient is full code, full aggressive care. We will continue to follow expert opinion of neurology and treat this patient. Dictated by: LEE Anna MD JON Lennon/JOYCE /8:15 AM /8:32 AM
[2016-07-21] MEDS: SODIUM CHLORIDE 0.9% FLUSH 10 ML FLUSH IV FLUSH SCH (08:37)
[2016-07-21] MEDS: SERTRALINE HCL 50 MG TAB PO SCH (08:37)
[2016-07-21] MEDS: FERROUS SULFATE 325 MG (65 MG ELEMENTAL IRON) TAB PO SCH (08:37)
[2016-07-21] MEDS: HYOSCYAMINE 0.125 MG TAB PO SCH ×3 (08:37→18:00)
[2016-07-21] MEDS: HEPARIN SODIUM - SQ 10,000 UNITS/ML VIAL SQ SCH (08:37)
[2016-07-21] MEDS: DOCUSATE SODIUM 50 MG/SENNA 8.6 MG TAB PO SCH (08:37)
[2016-07-21] MEDS: CLOPIDOGREL 75 MG TAB PO SCH (08:38)
[2016-07-21] MEDS: METOPROLOL TARTRATE 50 MG TAB PO SCH (08:38)
[2016-07-21] MEDS: ASPIRIN EC 81 MG TABEC PO SCH (08:38)
[2016-07-21] MEDS: LOSARTAN 50 MG TAB PO SCH (08:38)
[2016-07-21] MEDS: PHENYTOIN SODIUM 100 MG CAP PO SCH (08:38)
[2016-07-21 10:17] VITALS: PULSE 68
[2016-07-21 11:27] VITALS: BP 92/51; PULSE 52; RESP 18; TEMP 98.5; O2SAT 95
--- NOTE | 2016-07-21 14:19 | EKG ---
Date Performed: 07/19/2016 Time Performed: 17:09:37 PTAGE: 65 years EKG: Sinus rhythm MINIMAL VOLTAGE CRITERIA FOR LVH, CONSIDER NORMAL VARIANT INFERIOR MYOCARDIAL INFARCTION Since the p rior tracing, the PVCs and the changes of left ventricular hypertrophy are no longer evident. ABNORMA L ECG PREVIOUS TRACING : 10/14/2015 17.53 DOCTOR: Vivien Bryant Interpretating Date/Time 07/21/2016 14:18:33
--- NOTE | 2016-07-21 15:30 | EC ---
Study Study Date:07/21/2016 STUDY CONCLUSIONS SUMMARY - Left ventricle: The cavity size was normal. Wall thickness was normal. Systolic function was normal. The estimated ejection fraction was in the range of 55% to 60%. Wall motion was normal; there were no regional wall motion abnormalities. - Aortic valve: Valve area: 2.31cm^2 (Vmax). - Pulmonary arteries: PA peak pressure: 32mm Hg (S). If LV function is below 40, please consider prescribing an ACEI or ARB or document rationale for non-use. PROCEDURE DATA STUDY STATUS: Elective. Procedure: Transthoracic echocardiography. Image quality was good. Scanning was performed from the parasternal, apical, and subcostal acoustic windows. Study completion: The patient tolerated the procedure well. Transthoracic echocardiography. M-mode, complete 2D, complete spectral Doppler, and color Doppler. Height: Height: 73in. Weight: Weight: 175.6lb. Body mass index: BMI: 23.2kg/m^2. Body surface area: BSA: 2.04m^2. Patient status: Inpatient. CARDIAC ANATOMY LEFT VENTRICLE: The cavity size was normal. Wall thickness was normal. Systolic function was normal. The estimated ejection fraction was in the range of 55% to 60%. Wall motion was normal; there were no regional wall motion abnormalities. AORTIC VALVE: Trileaflet; normal thickness leaflets. Doppler: Transvalvular velocity was within the normal range. There was no stenosis. No regurgitation. Valve area: 2.31cm^2 (Vmax). Indexed valve area: 1.13cm^2/m^2 (Vmax). Peak gradient: 11mm Hg (S). AORTA: Aortic root: The aortic root was normal in size. MITRAL VALVE: Structurally normal valve. Doppler: Transvalvular velocity was within the normal range. There was no evidence for stenosis. Trace to mild regurgitation. LEFT ATRIUM: The atrium was normal in size. RIGHT VENTRICLE: The cavity size was normal. Wall thickness was normal. PULMONIC VALVE: Doppler: Transvalvular velocity was within the normal range. There was no evidence for stenosis. No regurgitation. TRICUSPID VALVE: Structurally normal valve. Doppler: Transvalvular velocity was within the normal range. No regurgitation. PULMONARY ARTERY: The main pulmonary artery was normal-sized. Systolic pressure was within the normal range. RIGHT ATRIUM: The atrium was normal in size. PERICARDIUM: There was no pericardial effusion. SYSTEMIC VEINS: Inferior vena cava: The vessel was normal in size. Patient weight: 175.6lb _Ejection fraction:_ 65-75% _Fractional shortening:_ 32% up to 5Kg 5-11.5Kg 11.6-22.9Kg 23-45Kg 45-57Kg Aortic Root 7-13 <17 13-22 17-27 17-27 LA diam 6-13 <23 24-38 33-47 37-40 RVID 10-17 7-15 7-15 7-18 8-17 LVIDd 12-22 <32 24-38 33-47 37-40 LVPW 2-4 3-6 5-7 6-8 7-8 IVS 2-4 3-6 5-7 6-8 7-8 BASIC MEASUREMENTS ADULT NORMAL Left ventricle LV internal dimension, ED, chordal 49.3 mm 43-52 level, PLAX LV internal dimension, ES, chordal *39.5 mm 23-38 level, PLAX Fractional shortening, chordal level, *20 % >29 PLAX LV posterior wall thickness, ED 9.1 mm IVS/LVPW ratio, ED 1.06 <1.3 Ventricular septum Septal thickness, ED 9.63 mm Aortic valve Leaflet separation 16 mm 15-26 BASIC MEASUREMENTS ADULT NORMAL Aortic valve Leaflet separation 16 mm 15-26 Aorta Root diameter, ED 31 mm 20-37 Left atrium Anterior-posterior dimension, ES 34 mm 19-40 Anterior-posterior dimension index, ES 1.67 cm/m^2 <2.2 LA/aortic root ratio 1.1 DOPPLER MEASUREMENTS ADULT NORMAL Main pulmonary artery Pressure, S *32 mm Hg =30 Aortic valve Peak velocity, S 168 cm/s Peak gradient, S 11 mm Hg Valve area, Vmax 2.31 cm^2 Valve area index, Vmax 1.13 cm^2/m^2 Mitral valve Peak E-wave velocity 57.8 cm/s Peak A-wave velocity 85.9 cm/s Deceleration time *275 ms 150-230 Peak E/A ratio 0.7 Maximal regurgitant velocity 348 cm/s Tricuspid valve Regurgitant peak velocity 255 cm/s Peak RV-RA gradient, S 26 mm Hg Maximal regurgitant velocity 255 cm/s Systemic veins Estimated CVP 10 mm Hg Right ventricle RV pressure, S *36 mm Hg <30 Pulmonic valve Peak velocity, S 99.1 cm/s LEGEND: Mean values are shown as u=mean value. Asterisk (*) cárdenas values outside specified normal range. Prepared and signed by Hussein Alvarez [id number]
[2016-07-21 15:44] VITALS: BP 110/65; PULSE 60; RESP 20; TEMP 98.5; O2SAT 96
--- NOTE | 2016-07-22 17:38 | HHI.DS ---
Discharge Summary Admission Date Jul 19, 2016 at 18:08 Discharge Date: Jul 21, 2016 Admitting Diagnosis syncope Procedures MRI, carotid CTA Brief History This was a pleasant 65-year-old black male who was in his usual state of health up until 24 hours ago. The patient was currently at [facility], [facility] where he was sitting down eating with some of his family. The patient was sitting in a wheelchair and had an acute episode of syncope with loss of consciousness for approximately two minutes according to the record. The patient does not remember anything about the event. He had no signs or symptoms of chest pain, nausea, vomiting, fever, headache, numbness or tingling in his extremities before the incident occurred. The patient denies any previous syncopal episodes. According to the history and patient, he had a stroke approximately two to three months ago and he has been receiving rehabilitation. He was flaccid on his left side but does move his right arm and right leg with purpose. CBC/BMP: 07/20/16 0607 07/21/16 0450 Significant Findings Laboratory Tests Test 07/20/16 06:07 Red Blood Count 3.18 MIL/MM3 (4.50-5.90) Hemoglobin 10.1 GM/DL (13.0-17.0) Hematocrit 30.3 % (39.0-51.0) Monocytes (%) (Auto) 12.6 % (0.0-8.0) Imaging Last Impressions Neck CTA 07/20/16 0000 Signed Impressions: Service Date/Time: Wednesday, July 20, 2016 07:53 - CONCLUSION: Persistent occlusion of the right internal carotid artery. No significant stenosis seen with regards to the left internal carotid artery.. Ofelia Downs MD Head CT 07/19/16 1559 Signed Impressions: Service Date/Time: Tuesday, July 19, 2016 16:39 - CONCLUSION: 1. No acute intracranial hemorrhage. 2. Evidence of old infarction involving the right frontal lobe, right mid parietal area and right thalamus. 3. Bilateral cortical atrophy and chronic white matter changes bilaterally. Mark Sampson MD Chest X-Ray 07/19/16 1559 Signed Impressions: Service Date/Time: Tuesday, July 19, 2016 16:07 - CONCLUSION: No acute disease. No significant change has occurred. Mark Sampson MD Carotid Artery Ultrasound 07/19/16 0000 Signed Impressions: Service Date/Time: Tuesday, July 19, 2016 22:13 - CONCLUSION: 1. Occlusion of the right internal carotid artery. 2. Prominent at least moderate plaque at the left carotid bulb region. A significant stenosis is not confirmed. This area could be further evaluated with a CTA of the neck. Low Barnett MD PE at Discharge GENERAL: This was a well-developed, well-nourished male who appears to be in no acute distress. He was alert and awake, CVA in 2016 HEAD: Normocephalic Facial features appear symmetric. OROPHARYNGEAL: Oropharynx without erythema or edema. NECK: Supple. No nuchal rigidity or lymphadenopathy. Trachea midline without deviation. CARDIAC: Regular rhythm, regular rate, S1 and S2 are heard. Murmur grade 3/6 left sternal border; no gallops or rubs. LUNGS: Clear to auscultation bilaterally. ABDOMEN: Soft, nontender, no organomegaly or masses. Bowel sounds are heard in all four quadrants. No rebound. No guarding. EXTREMITIES: no edema. Pulses equal bilateral. Left sided weakness/paralysis NEUROLOGICAL: Patient responds to verbal stimuli and communicates with short brief sentences SKIN:Warm and moist Hospital Course These are the diagnoses that were used to treat this patient during his hospital course Syncopal episode, witnessed CTA carotids show right occlusion, left side open, stroke 2016 with total left-sided paralysis. Neuro consult done Appreciate input. Patient is still positive from residual effects of previous CVA. EEG pending, patient refused echocardiogram yesterday. We'll attempt to redo today Appreciate vascular surgery consult, no surgical intervention to offer for now. We'll monitor for any seizures versus syncopal episodes Hypertension Normal trends with medication management, Lowest BP noted 99/63 while sleeping, this a.m. 128/72. Will monitor symptoms Hyperlipidemia no acute problems encountered Medical management Chronic kidney disease, no acute problems encountered medical management, monitor labs Agitation, refused echocardiogram yesterday, was not feeling as well. We will attempt to redo today Bradycardia Low 59 when sleeping, otherwise in the 60s and 70s. Medical management. Patient is asymptomatic Anemia Lab results currently show hemoglobin at 10.1. This is probably due to chronic disease. We'll monitor his labs Patient had multiple testing for his syncopal episode. All test were unremarkable or head no acute new events to treat. Patient experienced no dizziness no syncope while in the hospital. Patient's ECG was monitored throughout stay with no dysrhythmias noted. Vital signs reviewed, afebrile, BP notes above, heart rate stable, notes above Labs reviewed, stable chemistries, no leukocytosis or infectious event seen. We 'll monitor On day of discharge, examined patient and charted. Patient seen and examined work up neg, no syncope inpatient awaiting ECHo, but patient had refused earlier PT eval: needs SNF if Echoneg, can d/c to SNF discussed with patient and family at bed side discussed with case management discussed with Luba HOWARD Pt Condition on Discharge: Stable Discharge Disposition: Discharge to SNF Discharge Instructions DIET: Follow Instructions for: Heart Healthy Diet Activities you can perform: Regular-No Restrictions Continued Medications: Amlodipine (Amlodipine) 10 Mg Tab 10 MG PO DAILY Blood Pressure Management #30 Ref 0 TAB Aspirin (Aspirin) 81 Mg Tabdr 81 MG PO DAILY TAB Atorvastatin (Atorvastatin) 80 Mg Tab 80 MG PO HS Cholesterol Management #30 Ref 0 TAB Clonidine 168 HR Patch (Clonidine 168 HR Patch) 0.1 Mg/24 Hr Patch 1 PATCH T-DERMAL Q7D Blood Pressure Management #4 Ref 0 PATCH Clopidogrel (Clopidogrel) 75 Mg Tab 75 MG PO DAILY Blood Clot Prevention #30 Ref 0 TAB Ferrous Sulfate (Ferrous Sulfate) 325 Mg Tab 325 MG PO DAILY Nutritional Supplement #30 Ref 0 TAB Hydralazine (Hydralazine) 50 Mg Tab 50 MG PO Q6HR Take with a meal Blood Pressure Management Ref 0 TAB Hyoscyamine Sulfate (Hyoscyamine Sulfate) 0.125 Mg Sub 1 TAB PO TID Levothyroxine (Levothyroxine) 50 Mcg Tab 50 MCG PO DAILY Thyroid #30 Ref 0 TAB Losartan (Losartan) 50 Mg Tab 50 MG PO DAILY Blood Pressure Management #30 Ref 0 TAB Metoprolol Tartrate (Metoprolol Tartrate) 50 Mg Tab 50 MG PO BID #60 Ref 0 TAB Mirtazapine (Mirtazapine) 15 Mg Tab 15 MG PO HS Depression Control #30 Ref 0 TAB Phenytoin (Phenytoin) 1 Pow Pow 100 MG PO BID Sennosides-Docusate Sodium (Senokot S) 8.6-50 Mg Tab 2 TAB PO BID Constipation Ref 0 TAB Sertraline (Sertraline) 50 Mg Tab 50 MG PO DAILY #30 Ref 0 TAB Trazodone (Trazodone) 100 Mg Tab 100 MG PO HS Control Depression #30 Ref 0 TAB Discontinued Medications: Hydrocodone-Acetaminophen (Hydrocodone-Acetaminophen) 5-325 mg Tab 1 TAB PO BID PAIN Ref 0 TAB Additional Information Follow-up with PCP in one week or 2 Luba Negron Jul 22, 2016 17:38
== END 2016-07-21 20:21 | disposition short-term general hospital (02) ==
LOC: NEPE 15:47 → NEDA 18:08 → NEPGCP 19:26
PROVIDERS: ADMIT Internal Medicine; ATTEND Internal Medicine
DX: R55 Syncope and collapse (principal); N18.3 Chronic kidney disease, stage 3 (moderate); I12.9 Hypertensive chronic kidney disease with stage 1 through stage 4 chronic kidney disease, or unspecified chronic kidney disease; Z86.73 Personal history of transient ischemic attack (TIA), and cerebral infarction without residual deficits; I63.9 Cerebral infarction, unspecified; D63.8 Anemia in other chronic diseases classified elsewhere; E78.00 Pure hypercholesterolemia, unspecified; B19.20 Unspecified viral hepatitis C without hepatic coma; F17.210 Nicotine dependence, cigarettes, uncomplicated; Z79.899 Other long term (current) drug therapy; F12.90 Cannabis use, unspecified, uncomplicated; E78.5 Hyperlipidemia, unspecified; I25.10 Atherosclerotic heart disease of native coronary artery without angina pectoris; I63.231 Cerebral infarction due to unspecified occlusion or stenosis of right carotid arteries
CPT/HCPCS: 70450; 70498; 71010; 80048; 80185; 82550; 82552; 83735; 84484; 85025; 85610; 85730; 93005; 93306; 93880; 95819; 97110; 97162; 97530; 99285; G0378; G8987; G8988; J1644; Q9967

== ENCOUNTER 2017-05-31 13:23 | Emergency (ER) | payer OTHER ==
[~2017-05-31] VITALS: Ht 182.9 cm; Wt 85.0 kg
[~2017-05-31 13:23] MED LIST changes: +AMLO10TA2 PO; -AMLO5 PO; +ASPI1TAB69 PO; -ASPI325T PO; +ATOR80TA45 PO; -CLON.1T TD; +CLON0.1D T-DERMAL; -CLOP75 PO; +CLOP75TA PO; +FERR325T PO; +HYDR50TA15 PO; -HYDRA50 PO; +HYOS0.1261 PO; +LEVO50TA4 PO; -LORTA5 PO; -LOSA50 PO; +LOSA50TA PO; -METO25 PO; +METO50TA PO; +MIRTA15 PO; -PHEN100 PO; +PHEN1POW PO; -PRAV40 PO; +SENN1TAB17 PO; +SERT-132 PO; -TRAZ100 PO; +TRAZ100T4 PO; -WALKER ROLLING
[2017-05-31 13:24] VITALS: BP 139/75; PULSE 68; RESP 19; TEMP 98.5; O2SAT 97
[2017-05-31] MEDS ORDERED: SODIUM CHLOR 0.9% 1000 ML INJ 1,000 ML IV SCH (13:26)
--- NOTE | 2017-05-31 13:31 | PD ---
HPI Chief Complaint: Altered Mental Status Time Seen by Provider: 13:27 Travel History International Travel<30 days: No Contact w/Intl Traveler<30days: No History of Present Illness HPI 66-year-old male with a history of CVA with L sided hemiparesis presents emergency department via [facility] emergently after being found with altered mental status. [facility] states that patient was sitting in the front passenger seat and became altered and unconscious. Patient apparently was riding with his daughter to visit family and patient became unresponsive. EVAC states that upon arrival, patient was altered and had a heart rate in the 30s. EVAC gave the patient 0.5 mg atropine and 100 cc normal saline IV bolus and he became more alert. EVAC states that he is normally in O 4 and is able to hold conversations and is fairly independent. He lives in an assisted living facility. Patient is alert and oriented to person, place, month. He has no complaints today. Denies chest pain, shortness of breath. PFSH Past Medical History Autoimmune Disease: No Blood Disorders: No Anxiety: Yes Depression: Yes Heart Rhythm Problems: No Cancer: No Cardiovascular Problems: Yes High Cholesterol: Yes Chest Pain: No Congestive Heart Failure: No Cerebrovascular Accident: Yes Diminished Hearing: No Endocrine: No Genitourinary: No Hepatitis: Yes (HEP C) Hypertension: Yes Immune Disorder: No Implanted Vascular Access Dvce: Yes Musculoskeletal: No Neurologic: No Psychiatric: Yes Respiratory: No Myocardial Infarction: No Past Surgical History Body Medical Devices: EAR PEIRCING, IVAD Other Surgery: No Social History Alcohol Use: No (1-2 BEERS/DAY) Tobacco Use: Yes (1 PPD) Substance Use: No (MARIJUANA) Allergies-Medications (Allergen,Severity, Reaction): Coded Allergies: No Known Allergies (Verified Adverse Reaction, Unknown, 05/31/17) Reported Meds & Prescriptions Reported Meds & Active Scripts Active Reported Lactulose Liq (Lactulose) 10 Gm/15 Ml Soln 30 Ml PO Q6H PRN Dilantin (Phenytoin Extended) 100 Mg Cap 200 Mg PO HS Dilantin (Phenytoin Extended) 100 Mg Cap 100 Mg PO DAILY [place] (Hydrocodone-Acetaminophen) 5 Mg-325 Mg Tab 1 Tab PO BID PRN Aspirin 81 Mg Chew 81 Mg CHEW DAILY Hydralazine HCl 25 Mg Tablet 50 Mg PO TID Ferrous Sulfate 325 Mg (65 Mg Iron) Tablet 325 Mg PO DAILY Clonidine 168 HR Patch (Clonidine HCl) 0.1 Mg/24 Hr Patch 1 Patch T-DERMAL Q7D Senokot S (Sennosides-Docusate Sodium) 8.6-50 Mg Tab 2 Tab PO BID Phenytoin (Phenytoin Sodium) 1 Pow Pow 100 Mg PO BID Mirtazapine 15 Mg Tab 15 Mg PO HS Metoprolol Tartrate 50 Mg Tab 50 Mg PO BID Losartan (Losartan Potassium) 50 Mg Tab 50 Mg PO DAILY Levothyroxine (Levothyroxine Sodium) 50 Mcg Tab 50 Mcg PO DAILY Hyoscyamine Sulfate 0.125 Mg Sub 1 Tab PO TID Clopidogrel (Clopidogrel Bisulfate) 75 Mg Tab 75 Mg PO DAILY Atorvastatin (Atorvastatin Calcium) 80 Mg Tab 80 Mg PO HS Amlodipine (Amlodipine Besylate) 10 Mg Tab 10 Mg PO DAILY Physical Exam Narrative GENERAL: Well-developed well-nourished in no apparent distress lying comfortably in bed. Patient is alert to self, place, month SKIN: Focused skin assessment warm/dry. HEAD: Atraumatic. Normocephalic. EYES: Pupils equal and round. No scleral icterus. No injection or drainage. ENT: No nasal bleeding or discharge. Mucous membranes pink and moist. NECK: Trachea midline. No JVD. CARDIOVASCULAR: Regular rate and rhythm. No murmur appreciated. RESPIRATORY: No accessory muscle use. Clear to auscultation. Breath sounds equal bilaterally. GASTROINTESTINAL: Abdomen soft, non-tender, nondistended. Hepatic and splenic margins not palpable. MUSCULOSKELETAL: No obvious deformities. No clubbing. No cyanosis. No edema. NEUROLOGICAL: Awake and alert. No obvious cranial nerve deficits. Motor grossly within normal limits. Normal speech. PSYCHIATRIC: Appropriate mood and affect; insight and judgment normal. Data Data Last Documented VS Vital Signs Date Time Temp Pulse Resp B/P (MAP) Pulse Ox O2 Delivery O2 Flow Rate FiO2 05/31/17 19:04 05/31/17 16:01 70 18 99 Room Air 05/31/17 13:24 98.5 Orders Orders Electrocardiogram (05/31/17 13:26) Complete Blood Count With Diff (05/31/17 13:26) Comprehensive Metabolic Panel (05/31/17 13:26) Creatine Kinase (Cpk) (05/31/17 13:26) Prothrombin Time / Inr (Pt) (05/31/17 13:26) Act Partial Throm Time (Ptt) (05/31/17 13:26) Troponin I (05/31/17 13:26) Thyroid Stimulating Hormone (05/31/17 13:26) Lactic Acid Sepsis Protocol (05/31/17 13:26) Chest, Single Ap (05/31/17 13:26) Ct Brain W/O Iv Contrast(Rout) (05/31/17 13:26) Blood Glucose (05/31/17 13:26) Ecg Monitoring (05/31/17 13:26) Iv Access Insert/Monitor (05/31/17 13:26) Oximetry (05/31/17 13:26) Sodium Chloride 0.9% Flush (Ns Flush) (05/31/17 13:30) Sodium Chlor 0.9% 1000 Ml Inj (Ns 1000 M (05/31/17 13:26) Shoulder, Limited(2vws) (05/31/17 ) Support Splint (05/31/17 14:54) Phenytoin (Dilantin) (05/31/17 13:40) Phenytoin Inj (Dilantin Inj) (05/31/17 16:15) Ed Discharge Order (05/31/17 16:26) Labs Laboratory Tests Test 05/31/17 13:40 05/31/17 13:42 White Blood Count 5.6 TH/MM3 Red Blood Count 3.24 MIL/MM3 Hemoglobin 10.6 GM/DL Hematocrit 31.3 % Mean Corpuscular Volume 96.6 FL Mean Corpuscular Hemoglobin 32.8 PG Mean Corpuscular Hemoglobin Concent 34.0 % Red Cell Distribution Width 13.7 % Platelet Count 224 TH/MM3 Mean Platelet Volume 7.5 FL Neutrophils (%) (Auto) 44.8 % Lymphocytes (%) (Auto) 37.5 % Monocytes (%) (Auto) 14.9 % Eosinophils (%) (Auto) 1.8 % Basophils (%) (Auto) 1.0 % Neutrophils # (Auto) 2.5 TH/MM3 Lymphocytes # (Auto) 2.1 TH/MM3 Monocytes # (Auto) 0.8 TH/MM3 Eosinophils # (Auto) 0.1 TH/MM3 Basophils # (Auto) 0.1 TH/MM3 CBC Comment DIFF FINAL Differential Comment Prothrombin Time 11.4 SEC Prothromb Time International Ratio 1.1 RATIO Activated Partial Thromboplast Time 26.3 SEC Blood Urea Nitrogen 12 MG/DL Creatinine 0.73 MG/DL Random Glucose 80 MG/DL Total Protein 6.5 GM/DL Albumin 3.3 GM/DL Calcium Level 7.9 MG/DL Alkaline Phosphatase 84 U/L Aspartate Amino Transf (AST/SGOT) 16 U/L Alanine Aminotransferase (ALT/SGPT) 29 U/L Total Bilirubin 0.2 MG/DL Sodium Level 142 MEQ/L Potassium Level 4.1 MEQ/L Chloride Level 106 MEQ/L Carbon Dioxide Level 31.9 MEQ/L Anion Gap 4 MEQ/L Estimat Glomerular Filtration Rate 130 ML/MIN Total Creatine Kinase 79 U/L Troponin I LESS THAN 0.02 NG/ML Thyroid Stimulating Hormone 3rd Gen 2.660 uIU/ML Phenytoin (Dilantin) Level 8.5 MCG/ML Lactic Acid Level 1.6 mmol/L MDM Medical Decision Making Medical Screen Exam Complete: Yes Emergency Medical Condition: Yes Differential Diagnosis NSTEMI, STEMI, CVA, symptomatic bradycardia, dehydration Narrative Course 66-year-old male with a history of CVA with L sided hemiparesis presents emergency department via [facility] emergently after being found with altered mental status. EVAC states that patient was sitting in the front passenger seat and became altered and unconscious. Patient apparently was riding with his daughter to visit family and patient became unresponsive. EVAC states that upon arrival, patient was altered and had a heart rate in the 30s. EVAC gave the patient 0.5 mg atropine and 100 cc normal saline IV bolus and he became more alert. EVAC states that he is normally in O 4 and is able to hold conversations and is fairly independent. He lives in an assisted living facility. Patient is alert and oriented to person, place, month. He has no complaints today. Denies chest pain, shortness of breath. EKG demonstrates sinus rhythm at a rate of 69 without STEMI changes. Shoulder xray shows subluxation of shoulder. This is likely chronic as he has left sided hemiparesis. He is otherwise neurovascularly intact. Arm Sling applied. Review of EMR shows pt has a history of CVA, Hep C, HLD, HTN, Depression, Anxiety. CVA in early 2016. I do not see notes from this particular event. Last echo 07/2016 shows EF 55-60%. Carotid Artery US demonstrated an occluded R ICA, referred to vascular for right hemispheric CVA with left hemiparesis. There is no recommendation regarding surgical intervention at that time. The nurse, Ofelia, Called [facility] to discuss medications that patient takes as he was unable to tell me what they were. The facility nurse stated that patient did take his morning medications today. Patient does not fact have occasional times of confusion that are intermittent and resolve on their own. Family states he has a history of seizures and believes that he may have had a seizure in the car today. Dilantin level at 8.5. Dilantin 100mg administered. Pt should follow up with his PCP for medication dosing changes. Please see Dr. Vigil's note as well regarding this patient. Patient will be discharged home to follow-up with the neurologist as an outpatient. Advised to take all medications as prescribed. Diagnosis Primary Impression: Bradycardia Additional Impressions: Shoulder dislocation Qualified Codes: S43.005A - Unspecified dislocation of left shoulder joint, initial encounter Subtherapeutic serum dilantin level Referrals: Neurologist Primary Care Physician Additional Instructions: Use the arm sling for pain. Follow up with your PCP regarding the possible seizure today. Consider medication adjustment for your seizure disorder. Take all medications as prescribed. Ensure adequate fluid intake and proper nutrition. Disposition: 01 DISCHARGE HOME Condition: Stable Awa Victoria May 31, 2017 13:31
[2017-05-31] MEDS: SODIUM CHLORIDE 0.9% FLUSH 10 ML FLUSH IV FLUSH PRN ×2 (13:54→17:54)
[2017-05-31 14:02] LABS: AUTOMATED NEUTROPHIL # 2.5 TH/MM3 (1.8-7.7); BASOPHIL # 0.1 TH/MM3 (0-0.2); EOSINOPHIL # 0.1 TH/MM3 (0-0.4); EOSINOPHIL % 1.8 % (0.0-4.0); HEMATOCRIT 31.3 % (39.0-51.0); HEMOGLOBIN 10.6 GM/DL (13.0-17.0); LYMPH % 37.5 % (9.0-44.0); LYMPHOCYTE # 2.1 TH/MM3 (1.0-4.8); MEAN CELL VOLUME 96.6 FL (80.0-100.0); MEAN CORPUSCULAR HEMOGLOBIN 32.8 PG (27.0-34.0); MEAN PLATELET VOLUME 7.5 FL (7.0-11.0); MONO % 14.9 % (0.0-8.0); MONOCYTE # 0.8 TH/MM3 (0-0.9); NEUT % 44.8 % (16.0-70.0); PLATELET COUNT 224 TH/MM3 (150-450); RED BLOOD COUNT 3.24 MIL/MM3 (4.50-5.90); RED CELL DISTRIBUTION WIDTH 13.7 % (11.6-17.2); WHITE BLOOD COUNT 5.6 TH/MM3 (4.0-11.0)
[2017-05-31 14:13] LABS: INTERNATIONAL NORMALIZED RATIO 1.1 RATIO; PROTHROMBIN TIME - PATIENT 11.4 SEC (9.8-11.6)
[2017-05-31 14:20] LABS: ALBUMIN 3.3 GM/DL (3.4-5.0); ALT (GPT) 29 U/L (12-78); AST (GOT) 16 U/L (15-37); BICARBONATE 31.9 MEQ/L (21.0-32.0); BLOOD UREA NITROGEN 12 MG/DL (7-18); CALCIUM 7.9 MG/DL (8.5-10.1); CHLORIDE 106 MEQ/L (98-107); CREATININE 0.73 MG/DL (0.60-1.30); GLOMERULAR FILTRATION RATE 130 ML/MIN (>89); GLUCOSE,RANDOM 80 MG/DL (74-106); SODIUM (NA) 142 MEQ/L (136-145)
--- NOTE | 2017-05-31 14:24 | RADRPT ---
EXAM DATE/TIME: 05/31/2017 13:49 [facility] COMPARISON: CHEST SINGLE AP, July 19, 2016, 16:07. INDICATIONS : Syncope, alter mental status. MEDICAL HISTORY : Hypertension. Hepatitis C. Hypercholesterolemia. CVA. Seizures. SURGICAL HISTORY : None. ENCOUNTER: Initial ACUITY: 1 day PAIN SCORE: Non-responsive. LOCATION: Bilateral chest FINDINGS: A single view of the chest demonstrates the lungs to be symmetrically aerated without evidence of mas s, infiltrate or effusion. The cardiomediastinal contours are unremarkable. Osseous structures are intact. CONCLUSION: Normal examination. Charanjit Kendall MD on May 31, 2017 at 14:22 Board Certified Radiologist. This report was verified electronically.
[2017-05-31 14:27] LABS: ALKALINE PHOSPHATASE 84 U/L (45-117); TOTAL BILIRUBIN ADULT 0.2 MG/DL (0.2-1.0); TOTAL PROTEIN 6.5 GM/DL (6.4-8.2); TROPONIN I LESS THAN 0.02 NG/ML (0.02-0.05)
--- NOTE | 2017-05-31 14:27 | RADRPT ---
EXAM DATE/TIME: 05/31/2017 14:09 [facility] COMPARISON: No previous studies available for comparison. INDICATIONS : Altered mental status. RADIATION DOSE: 49.3 CTDIvol (mGy) MEDICAL HISTORY : Hepatitis C. Stroke Hypertension. SURGICAL HISTORY : None. ENCOUNTER: Initial ACUITY: 1 day PAIN SCALE: 0/10 LOCATION: Bilateral head TECHNIQUE: Multiple contiguous axial images were obtained of the head. Using automated exposure control and adj ustment of the mA and/or kV according to patient size, radiation dose was kept as low as reasonably a chievable to obtain optimal diagnostic quality images. DICOM format image data is available electro nically for review and comparison. FINDINGS: CEREBRUM: Marked low density throughout the periventricular white matter right greater than left similar to Jul. I don't see any significant acute hemorrhage or edema POSTERIOR FOSSA: The cerebellum and brainstem are intact. The 4th ventricle is midline. The cerebellopontine angle i s unremarkable. EXTRACRANIAL: The visualized portion of the orbits is intact. SKULL: The calvaria is intact. No evidence of skull fracture. CONCLUSION: Marked low density throughout the periventricular white matter extending particularly in the right fr ontal region similar 2017. No evidence of hemorrhage, mass or mass effect Charanjit Kendall MD on May 31, 2017 at 14:24 Board Certified Radiologist. This report was verified electronically.
--- NOTE | 2017-05-31 14:31 | RADRPT ---
EXAM DATE/TIME: 05/31/2017 13:57 [facility] COMPARISON: No previous studies available for comparison. INDICATIONS : Left shoulder pain. MEDICAL HISTORY : Hypertension. Hepatitis C. Hypercholesterolemia. CVA. Seizures. SURGICAL HISTORY : None. ENCOUNTER: Initial ACUITY: 1 day PAIN SCORE: Non-responsive. LOCATION: Left upper extremity FINDINGS: Two view examination of the left shoulder demonstrates inferior displacement of the humeral head susp icious for a large joint effusion. On the transscapular view the humeral head may be slightly posteri or subluxed as well. Bony mineralization is normal. CONCLUSION: Posterior inferior subluxation of the humeral head on the glenoid. Noncontrast shoulder CT may be of benefit. Charanjit Kendall MD on May 31, 2017 at 14:28 Board Certified Radiologist. This report was verified electronically.
--- NOTE | 2017-05-31 15:11 | PD ---
Data Data Last Documented VS Vital Signs Date Time Temp Pulse Resp B/P (MAP) Pulse Ox O2 Delivery O2 Flow Rate FiO2 05/31/17 16:01 70 18 180/112 (134) 99 Room Air 05/31/17 13:24 98.5 Orders Orders Electrocardiogram (05/31/17 13:26) Complete Blood Count With Diff (05/31/17 13:26) Comprehensive Metabolic Panel (05/31/17 13:26) Creatine Kinase (Cpk) (05/31/17 13:26) Prothrombin Time / Inr (Pt) (05/31/17 13:26) Act Partial Throm Time (Ptt) (05/31/17 13:26) Troponin I (05/31/17 13:) Thyroid Stimulating Hormone (05/31/17 13:) Lactic Acid Sepsis Protocol (05/31/17 13:26) Chest, Single Ap (05/31/17 13:26) Ct Brain W/O Iv Contrast(Rout) (05/31/17 13:26) Blood Glucose (05/31/17 13:26) Ecg Monitoring (05/31/17 13:26) Iv Access Insert/Monitor (05/31/17 13:26) Oximetry (05/31/17 13:26) Sodium Chloride 0.9% Flush (Ns Flush) (05/31/17 13:30) Sodium Chlor 0.9% 1000 Ml Inj (Ns 1000 M (05/31/17 13:26) Shoulder, Limited(2vws) (05/31/17 ) Support Splint (05/31/17 14:54) Phenytoin (Dilantin) (05/31/17 13:40) Phenytoin Inj (Dilantin Inj) (05/31/17 16:15) Ed Discharge Order (05/31/17 16:26) Labs Laboratory Tests Test 05/31/17 13:40 05/31/17 13:42 White Blood Count 5.6 TH/MM3 Red Blood Count 3.24 MIL/MM3 Hemoglobin 10.6 GM/DL Hematocrit 31.3 % Mean Corpuscular Volume 96.6 FL Mean Corpuscular Hemoglobin 32.8 PG Mean Corpuscular Hemoglobin Concent 34.0 % Red Cell Distribution Width 13.7 % Platelet Count 224 TH/MM3 Mean Platelet Volume 7.5 FL Neutrophils (%) (Auto) 44.8 % Lymphocytes (%) (Auto) 37.5 % Monocytes (%) (Auto) 14.9 % Eosinophils (%) (Auto) 1.8 % Basophils (%) (Auto) 1.0 % Neutrophils # (Auto) 2.5 TH/MM3 Lymphocytes # (Auto) 2.1 TH/MM3 Monocytes # (Auto) 0.8 TH/MM3 Eosinophils # (Auto) 0.1 TH/MM3 Basophils # (Auto) 0.1 TH/MM3 CBC Comment DIFF FINAL Differential Comment Prothrombin Time 11.4 SEC Prothromb Time International Ratio 1.1 RATIO Activated Partial Thromboplast Time 26.3 SEC Blood Urea Nitrogen 12 MG/DL Creatinine 0.73 MG/DL Random Glucose 80 MG/DL Total Protein 6.5 GM/DL Albumin 3.3 GM/DL Calcium Level 7.9 MG/DL Alkaline Phosphatase 84 U/L Aspartate Amino Transf (AST/SGOT) 16 U/L Alanine Aminotransferase (ALT/SGPT) 29 U/L Total Bilirubin 0.2 MG/DL Sodium Level 142 MEQ/L Potassium Level 4.1 MEQ/L Chloride Level 106 MEQ/L Carbon Dioxide Level 31.9 MEQ/L Anion Gap 4 MEQ/L Estimat Glomerular Filtration Rate 130 ML/MIN Total Creatine Kinase 79 U/L Troponin I LESS THAN 0.02 NG/ML Thyroid Stimulating Hormone 3rd Gen 2.660 uIU/ML Phenytoin (Dilantin) Level 8.5 MCG/ML Lactic Acid Level 1.6 mmol/L [facility] Medical Record Reviewed: Yes Supervised Visit with FACUNDO: Yes Narrative Course CBC & BMP Diagram 05/31/17 13:40 Total Protein 6.5, Albumin 3.3 L, Calcium Level 7.9 L, Alkaline Phosphatase 84, Aspartate Amino Transf (AST/SGOT) 16, Alanine Aminotransferase (ALT/SGPT) 29, Total Bilirubin 0.2 The lactic acid is 1.6 TSH 2.66 Troponin 0 0.02 EKG shows sinus rhythm with a rate of 69 normal axis intervals Last Impressions Head CT 05/31/17 1326 Signed Impressions: Service Date/Time: Wednesday, May 31, 2017 14:09 - CONCLUSION: Marked low density throughout the periventricular white matter extending particularly in the right frontal region similar 2017. No evidence of hemorrhage, mass or mass effect Charanjit Kendall MD Chest X-Ray 05/31/17 1326 Signed Impressions: Service Date/Time: Wednesday, May 31, 2017 13:49 - CONCLUSION: Normal examination. Charanjit Kendall MD Shoulder X-Ray 05/31/17 0000 Signed Impressions: Service Date/Time: Wednesday, May 31, 2017 13:57 - CONCLUSION: Posterior inferior subluxation of the humeral head on the glenoid. Noncontrast shoulder CT may be of benefit. 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 Daughter was concerned about the benefits of discal therapy and with a long talk about the likely yield from physical therapy. She also notes the patient did not take the lactulose today and is uncertain if the patient had taken all his medications today which include Dilantin. She describes eyes rolled in the back of the head at the time of the altered mental status which raises concern for seizures in a patient with seizure disorder. TIA is considered less likely in this scenario. Dilantin level was subtherapeutic. Dilantin was replenished. Diagnosis Primary Impression: Seizure Additional Impressions: Subtherapeutic serum dilantin level Shoulder dislocation Qualified Codes: S43.005A - Unspecified dislocation of left shoulder joint, initial encounter Otoniel Vigil MD May 31, 2017 15:11
[2017-05-31] MEDS ORDERED: HYDR-3799 PO (15:15)
[2017-05-31] MEDS ORDERED: ASPI-516 CHEW (15:15)
[2017-05-31] MEDS ORDERED: FERR325T18 PO (15:15)
[2017-05-31] MEDS ORDERED: DILA100C PO ×2 (15:17)
[2017-05-31] MEDS ORDERED: NORC5TAB PO (15:17)
[2017-05-31] MEDS ORDERED: LACT10SO PO (15:22)
[2017-05-31 15:29] LABS: PHENYTOIN (DILANTIN) 8.5 MCG/ML (10.0-20.0)
[2017-05-31 16:01] VITALS: BP 180/112; PULSE 70; RESP 18; O2SAT 99
[2017-05-31] MEDS ORDERED: PHENYTOIN INJ 100 MG/2 ML VIAL IV PUSH ONE (16:15)
--- NOTE | 2017-06-01 23:09 | EKG ---
Date Performed: 05/31/2017 Time Performed: 13:28:01 PTAGE: 66 years EKG: Sinus rhythm NONSPECIFIC T-WAVE ABNORMALITY BORDERLINE ECG PREVIOUS TRACING : 07/19/2016 17.09 DOCTOR: Benson Butler Interpretating Date/Time 06/01/2017 22:59:04
== END 2017-05-31 19:06 | disposition home or self-care (01) ==
LOC: NEPC 13:23
DX: G40.909 Epilepsy, unspecified, not intractable, without status epilepticus (principal); S43.005A Unspecified dislocation of left shoulder joint, initial encounter; R79.1 Abnormal coagulation profile; I10 Essential (primary) hypertension; I69.354 Hemiplegia and hemiparesis following cerebral infarction affecting left non-dominant side; E78.00 Pure hypercholesterolemia, unspecified; B19.20 Unspecified viral hepatitis C without hepatic coma; F41.9 Anxiety disorder, unspecified; F32.9 Major depressive disorder, single episode, unspecified; R94.31 Abnormal electrocardiogram [ECG] [EKG]; F17.210 Nicotine dependence, cigarettes, uncomplicated; Z79.82 Long term (current) use of aspirin; Z79.899 Other long term (current) drug therapy
CPT/HCPCS: 70450; 71045; 73030; 80053; 80185; 82550; 83605; 84443; 84484; 85025; 85610; 85730; 93005; 96361; 96374; 99285; J1165; J7030